=== PATIENT | female | born 1995 | race Two or more races ===

== ENCOUNTER 2021-01-11 23:38 | Emergency (ER) | payer MEDICAID ==
[~2021-01-11] VITALS: Ht 162.6 cm; Wt 86.2 kg
[2021-01-11 23:41] VITALS: BP 107/56
== END 2021-01-12 00:14 | disposition left against medical advice (07) ==
LOC: ER 23:38
DX: O26.893 Other specified pregnancy related conditions, third trimester (principal); M79.601 Pain in right arm; Z3A.35 35 weeks gestation of pregnancy; Z53.21 Procedure and treatment not carried out due to patient leaving prior to being seen by health care provider